=== PATIENT | female | born 1955 | race Caucasian/White ===

== ENCOUNTER 2016-09-21 08:00 | Outpatient (RCR) | payer OTHER | END 2016-10-12 08:22 | disposition home or self-care (01) | LOC: WSOT 08:00 | DX: M25.532 Pain in left wrist (principal) ==

== ENCOUNTER → 2017-06-25 | Outpatient (CLI) | payer BC | LOC: MC.RAD 06-20 16:20 | DX: Z12.31 Encounter for screening mammogram for malignant neoplasm of breast (principal) ==

== ENCOUNTER → 2018-07-15 | Outpatient (CLI) | payer BC | LOC: MC.RAD 13:54 | DX: Z12.31 Encounter for screening mammogram for malignant neoplasm of breast (principal) ==

== ENCOUNTER → 2019-06-09 | Outpatient (CLI) | payer BC | LOC: MC.RAD 15:03 | DX: Z12.31 Encounter for screening mammogram for malignant neoplasm of breast (principal) ==

== ENCOUNTER → 2020-06-24 | Outpatient (CLI) | payer BC | LOC: MC.RAD 12:51 | DX: Z12.31 Encounter for screening mammogram for malignant neoplasm of breast (principal) ==

== ENCOUNTER → 2020-12-22 | Outpatient (CLI) | payer OTHER ==
[~2020-12-22] MED LIST: HYDRO EYE; SYNTHROID0.088 MG/T PO; VITAMIND3 5000 PO
== END ==
LOC: COL.RAD 12:24
DX: M47.812 Spondylosis without myelopathy or radiculopathy, cervical region (principal); M48.02 Spinal stenosis, cervical region; M50.222 Other cervical disc displacement at C5-C6 level; R51.9 Headache, unspecified

== ENCOUNTER → 2021-06-22 | Outpatient (CLI) | payer BC | LOC: MC.RAD 09:38 | DX: Z12.31 Encounter for screening mammogram for malignant neoplasm of breast (principal); N64.89 Other specified disorders of breast ==

== ENCOUNTER → 2021-06-29 | Outpatient (CLI) | payer BC | LOC: MC.RAD 12:38 | DX: N64.89 Other specified disorders of breast (principal) ==

== ENCOUNTER 2021-07-05 08:45 | Day surgery (SDC) | payer BC ==
[~2021-07-05] VITALS: Ht 162.6 cm; Wt 60.7 kg
[2021-07-05] MEDS ORDERED: SYNTHROID0.088 MG/T PO (09:11)
[2021-07-05] MEDS ORDERED: VITAMIND3 5000 PO (09:12)
[2021-07-05] MEDS ORDERED: HYDRO EYE (09:14)
[2021-07-05 09:31] VITALS: BP 120/58; PULSE 66; TEMP 98.1
[2021-07-05 11:49] VITALS: BP 112/68; PULSE 60
--- NOTE | 2021-07-05 11:49 | NUR ---
Patient returns to room 5 per cart from surgery and accompanied by Catina MONDRAGON and Mati LUIS. Patient is awake. IV fluids infusing and site is free of redness. Siderails up x2 and call light in reach. Temp 97.1 and room air sats 99%. Post op shoe covering bulky tami wrap dressing on the right foot.
[2021-07-05 12:04] VITALS: BP 121/62; PULSE 58
--- NOTE | 2021-07-05 12:04 | NUR ---
Patient drinking water and eating toast. Denies pain or nausea.
[2021-07-05 12:19] VITALS: BP 125/66; PULSE 52
--- NOTE | 2021-07-05 12:19 | NUR ---
IV discontinued and assisted with dressing.
--- NOTE | 2021-07-05 12:35 | NUR ---
Dismissal instructions given and signed. Patient dismissed to home driven by spouse and taken to the front door per wheelchair and assisted into vehicle with dismissal instructions in hand.
== END 2021-07-05 12:35 | disposition home or self-care (01) ==
LOC: SDCO 08:45
DX: M21.611 Bunion of right foot (principal); E03.9 Hypothyroidism, unspecified; Z79.890 Hormone replacement therapy; Z79.3 Long term (current) use of hormonal contraceptives
CPT/HCPCS: J0690; J2704; J7120

== ENCOUNTER → 2022-01-01 | Outpatient (CLI) | payer BC | LOC: MC.RAD 13:41 | DX: N64.89 Other specified disorders of breast (principal) ==

== ENCOUNTER → 2023-08-06 | Outpatient (CLI) | payer MEDICARE, BC | LOC: CANSCHCLI → MC.RAD 07:39 | DX: Z12.31 Encounter for screening mammogram for malignant neoplasm of breast (principal) ==